=== PATIENT | male | born 1965 | race Caucasian/White ===

== ENCOUNTER 2018-03-01 21:31 | Emergency (ER) | payer MEDICARE, MEDICAID ==
[2018-03-01] MEDS ORDERED: SODIUM CHLORIDE 0.9% 1000ML 1,000 ML IV SCH (21:45)
[2018-03-01 21:55] LABS: BASOPHILS % (AUTO) 1 % (0-3); EOSINOPHILS % (AUTO) 4 % (0-9); HEMATOCRIT 45 % (39-53); HEMOGLOBIN 15.3 gm/dl (13.5-17.7); LYMPHOCYTES % (AUTO) 26.4 % (10-50); MEAN CORPUSCULAR HEMOGLOBIN 29.5 pg (27.0-32.0); MEAN CORPUSCULAR HGB CONC 33.7 gm/dl (32.0-36.0); MEAN CORPUSCULAR VOLUME 87 fL (80-100); MONOCYTES % (AUTO) 8.9 % (0-12); NEUTROPHILS % (AUTO) 59.5 % (37-80)
[2018-03-01 22:03] LABS: CALCIUM 8.7 mg/dl (8.5-10.1); CARBON DIOXIDE 28.7 mEq/L (21-32); CREATININE 1.14 mg/dl (0.80-1.30); POTASSIUM 3.5 mMol/L (3.5-5.1)
[2018-03-01] MEDS ORDERED: ACETAMINOPHEN 500 MG 500 MG TAB ONE (22:45)
[2018-03-01] MEDS ORDERED: ACETAMINOPHEN 500 MG 500 MG TAB PO ONE (22:45)
[2018-03-01 22:56] LABS: APPEARANCE,URINE Clear; BILIRUBIN,URINE NEGATIVE (NEGATIVE); COLOR,URINE Yellow; GLUCOSE, URINE (UA) NEGATIVE (NEGATIVE); KETONES,URINE NEGATIVE (NEGATIVE); LEUKOCYTE ESTERASE ,URINE NEGATIVE (NEGATIVE); NITRATE,URINE NEGATIVE (NEGATIVE); OCCULT BLOOD,URINE 3+ (NEG-TRACE)
[2018-03-01 23:01] VITALS: TEMP 98.5
[2018-03-01 23:07] LABS: BACTERIA TRACE (< 1+); CRYSTALS NEGATIVE (0-3 AVE/HPF); EPITHELIAL CELLS 0-2 (SQUAMOUS); RBC,URINE 100-150 (0-3AV/HPF)
[2018-03-02] MEDS ORDERED: TAMSULOSIN HYDROCHLORIDE 0.4 MG CAP ONE (00:32)
[2018-03-02 02:16] VITALS: BP 152/85; PULSE 75; RESP 18; O2SAT 96
[2018-03-02] MEDS ORDERED: TAMSULOSIN HYDROCHLORIDE 0.4 MG CAP PO SCH (21:00)
== END 2018-03-02 00:46 | disposition home or self-care (01) | DRG 694 ==
LOC: ED 21:31
DX: N20.0 Calculus of kidney (principal)
CPT/HCPCS: 74176; 80048; 81001; 85025; 96365; 99284; 99285; A9270-GY

== ENCOUNTER 2018-08-18 00:45 | Emergency (ER) | payer BC, MEDICAID, MEDICARE ==
[2018-08-18 01:54] VITALS: RESP 16; TEMP 97.1
[2018-08-18 02:48] VITALS: BP 135/89; PULSE 75; O2SAT 96
== END 2018-08-18 01:33 | disposition home or self-care (01) | DRG 156 ==
LOC: ED 00:45
DX: T16.2XXA Foreign body in left ear, initial encounter (principal)
CPT/HCPCS: 99282